=== PATIENT | male | born 1975 | race African-American/Black ===

== ENCOUNTER 2019-07-07 15:07 | Inpatient (IN) | payer OTHER ==
[2019-07-07 15:30] VITALS: BMI 28.8
--- NOTE | 2019-07-07 15:48 | HP ---
COWS - Scale Resting Pulse: 0= [place] 80 or Below Sweatin= Chills/Flushing Restless Observation: 1= Difficult to Sit Still Pupil Size: 1= Pupils >than Normal Bone or Joint Aches: 2= Severe Diffuse Aches Runny Nose/ Eye Tearin= Runny Nose/Eyes GI Upset > 30mins: 2= Nausea/Diarrhea Tremor Observation: 2= Slight Tremor Visible Yawning Observation: 1= 1-2x During Session Anxiety or Irritability: 2=Irritable/Anxious Goose Flesh Skin: 0=Smooth Skin COWS Score: 14 CIWA Score Nausea/Vomitin Muscle Tremors: 2 Anxiety: 3 Agitation: 3 Paroxysmal Sweats: 1-Minimal Palms Moist Orientation: 0-Oriented Tacttile Disturbances: 1-Very Mild Itch/Numbness Auditory Disturbances: 0-None Visual Disturbances: 0-None Headache: 2-Mild CIWA-Ar Total Score: 14 - Admission Criteria OASAS Guidelines: Admission for Medically Managed Detox: Requires at least one of the followin. CIWA greater than 12 2. Seizures within the past 24 hours 3. Delirium tremens within the past 24 hours 4. Hallucinations within the past 24 hours 5. Acute intervention needed for co occurring medical disorder 6. Acute intervention needed for co occurring psychiatric disorder 7. Severe withdrawal that cannot be handled at a lower level of care (continued vomiting, continued diarrhea, abnormal vital signs) requiring intravenous medication and/or fluids 8. Admitting History and Physical - Admission Chief Complaint: i need help to stop using heroin and alcohol History Source: Patient Limitations to Obtaining History: No Limitations - Smoking History Smoking history: Current every day smoker Have you smoked in the past 12 months: Yes Aproximately how many cigarettes per day: 10 - Alcohol/Substance Use Hx Alcohol Use: No (beer 1 six pk/d, vodka 1pt./d) - Social History Usual Living Arrangement: Yes: Other (live with brother) Occupation: unemployed Admission ROS S - HPI Chief Complaint: i need help to stop using heroin and alcohol Allergies/Adverse Reactions: Allergies Allergy/AdvReac Type Severity Reaction Status Date / Time No Known Allergies Allergy Verified 07/07/19 15:17 History of Present Illness: this 44 years old male with heroin and alcohol dependence seeking detox, withdrawal symptom,last detox 10/03 in [facility] multiple admissions in detox but keep relapsing weight loss nicotine dependence longest sobriety 1 year may go to rehab after detox hepatitis c treated may go to rehab after detox Exam Limitations: No Limitations - Ebola screening Have you traveled outside of the country in the last 21 days: No (N) Have you had contact with anyone from an Ebola affected area: No Do you have a fever: No - Review of Systems Constitutional: Chills, Loss of Appetite, Malaise, Night Sweats, Changes in sleep, Unintentional Wgt. Loss EENT: reports: Tearing, Nose Congestion Respiratory: reports: No Symptoms reported Cardiac: reports: No Symptoms Reported GI: reports: Diarrhea, Nausea, Poor Appetite Musculoskeletal: reports: Back Pain, Joint Pain, Muscle Pain Integumentary: reports: Dryness Neuro: reports: Headache, Tremors Endocrine: reports: No Symptoms Reported Hematology: reports: No Symptoms Reported Psychiatric: reports: No Sypmtoms Reported, Judgement Intact, Mood/Affect Appropiate, Orientated x3 Other Systems: Reviewed and Negative Patient History - Patient Medical History Hx Anemia: No Hx Asthma: No Hx Chronic Obstructive Pulmonary Disease (COPD): No Hx Cancer: No Hx Cardiac Disorders: No Hx Congestive Heart Failure: No Hx Hypertension: No Hx Hypercholesterolemia: No Hx Pacemaker: No HX Cerebrovascular Accident: No Hx Seizures: No Hx Dementia: No Hx Diabetes: No Hx Gastrointestinal Disorders: No Hx Liver Disease: No Hx Genitourinary Disorders: No Hx Sexually Transmitted Disorders: Yes (Tx in the past for gonorrhea) Hx Renal Disease (ESRD): No Hx Thyroid Disease: No Hx Human Immunodeficiency Virus (HIV): No (negative last 06/02 ) Hx Hepatitis C: Yes (treated) Hx Depression: No Hx Suicide Attempt: No Hx Bipolar Disorder: No Hx Schizophrenia: No Other Medical History: no suicidal,no homicidal - Patient Surgical History Past Surgical History: Yes Hx Neurologic Surgery: No Hx Cataract Extraction: No Hx Cardiac Surgery: No Hx Lung Surgery: No Hx Breast Surgery: No Hx Breast Biopsy: No Hx Abdominal Surgery: No Hx Appendectomy: No Hx Cholecystectomy: No Hx Genitourinary Surgery: No Hx Section: No Hx Orthopedic Surgery: Yes (Right mandible fx in 1995) Hx Hysterectomy: No Other Surgical History: Right orbital fx 1997 Anesthesia Reaction: No - PPD History Previous Implant?: Yes Documented Results: Negative w/o proof Date: 02/01/13 Results: 0mm PPD to be Administered?: Yes - Smoking Cessation Smoking history: Current every day smoker Have you smoked in the past 12 months: Yes Aproximately how many cigarettes per day: 10 Cigars Per Day: 0 Hx Chewing Tobacco Use: No Initiated information on smoking cessation: Yes 'Breaking Loose' booklet given: 07/07/19 - Substances abused Alcohol Substance route: Oral Frequency: Daily Amount used: 1 PINT OF CYRUS, 6 CANS OF BEER Age of first use: 15 Date of last use: 07/06/19 Heroin Substance route: Inhalation Frequency: Daily Amount used: 15 BAGS Age of first use: 19 Date of last use: 07/06/19 Admission Physical Exam [facility] - Vital Signs Vital Signs: Vital Signs - 24 hr 07/07/19 15:14 Temperature 97.7 F Pulse Rate 65 Respiratory 17 Rate Blood Pressure 121/71 - Physical General Appearance: Yes: Moderate Distress, Tremorous, Irritable, Sweating, Anxious HEENTM: Yes: Normal ENT Inspection, RIGOBERTO, Pharynx Normal Respiratory: Yes: Within Normal Limits, Lungs Clear, Normal Breath Sounds Neck: Yes: Within Normal Limits Breast: Yes: Within Normal Limits Cardiology: Yes: Within Normal Limits, Regular Rhythm, Regular Rate, S1, S2 Abdominal: Yes: Within Normal Limits, Normal Bowel Sounds, Non Tender, Flat, Soft Genitourinary: Yes: Within Normal Limits Back: Yes: Muscle Spasm Musculoskeletal: Yes: Back pain, Joint Stiffness, Muscle Pain Extremities: Yes: Within Normal Limits, Normal Range of Motion, Tremors Neurological: Yes: elevator serviceman II-XII NML intact, Fully Oriented, Alert, Motor Strength 5/5 Integumentary: Yes: Dry Lymphatic: Yes: Within Normal Limits - Diagnostic (1) Opioid dependence with withdrawal Current Visit: Yes Status: Acute (2) Alcohol dependence with uncomplicated withdrawal Current Visit: Yes Status: Acute (3) Cocaine abuse Current Visit: Yes Status: Acute (4) Dehydration Current Visit: Yes Status: Acute (5) Nicotine dependence Current Visit: Yes Status: Acute Cleared for Admission [facility] - Detox or Rehab [facility] Level of Care: Medically Managed Detox Regimen/Protocol: Methadone/Valium Breathalyzer - Breathalyzer Breathalyzer: 0 Urine Drug Screen - Test Device Lot number: [id number] Expiration date: 03/14/21 - Control Is test valid?: Yes - Results Drug screen NEGATIVE: No Urine drug screen results: KAVIN-Cocaine, FEN-Fentanyl, MOP-Opiates, BZO- Benzodiazepines Inpatient Rehab Admission - Rehab Decision to Admit Inpatient rehab admission?: No
[2019-07-07] MEDS ORDERED: ACETAMINOPHEN 325 MG TABLET (FP) PO PRN ×2 (15:55)
[2019-07-07] MEDS ORDERED: MENTHOL/PHENOL 1 EACH UD MM PRN (15:55)
[2019-07-07] MEDS ORDERED: diazePAM 5 MG TABLET PO PRN (15:55)
[2019-07-07] MEDS ORDERED: MELATONIN 5 MG TABLETS PO PRN (15:55)
[2019-07-07] MEDS ORDERED: IBUPROFEN 400 MG TABLET (FP) PO PRN (15:55)
[2019-07-07] MEDS ORDERED: hydrOXYzine PAMOATE 25 MG CAPSULE (FP) PO PRN (15:55)
[2019-07-07] MEDS ORDERED: METHOCARBAMOL 500 MG TABLET PO PRN (15:55)
[2019-07-07] MEDS ORDERED: MAGNESIUM HYDROX 2400MG/30ML ORAL SUSPENSION 30 ML CUP PO PRN (15:55)
[2019-07-07] MEDS ORDERED: BISMUTH SUBSALICYLATE 524 MG/30 ML UD PO PRN (15:55)
[2019-07-07] MEDS ORDERED: MAG HYDROX/AL HYDROX/SIMETH 30 ML UNIT-DOSE CUP PO PRN (15:55)
[2019-07-07] MEDS ORDERED: MAGNESIUM CITRATE 300 ML BOTTLE PO PRN (15:55)
[2019-07-07] MEDS ORDERED: NICOTINE POLACRILEX 2 MG GUM BUC PRN (15:55)
[2019-07-07] MEDS ORDERED: cloNIDine HCL 0.1 MG TABLET PO PRN (15:55)
[2019-07-07] MEDS ORDERED: METHADONE HCL 10 MG TABLET (FOR DETOX USE ONLY) PO ONE (16:15)
[2019-07-07] MEDS: diazePAM 5 MG TABLET PO SCH (22:40)
[2019-07-07] MEDS: THIAMINE HCL 100 MG TABLET (FP) PO SCH (22:40)
[2019-07-08] MEDS: diazePAM 5 MG TABLET PO SCH ×3 (06:52→22:02)
[2019-07-08] MEDS ORDERED: METHADONE HCL 5 MG TABLET (FOR DETOX USE ONLY) ONE ×2 (09:02→11:46)
[2019-07-08] MEDS ORDERED: METHADONE HCL 10 MG TABLET (FOR DETOX USE ONLY) ONE ×2 (09:03→11:47)
[2019-07-08] MEDS ORDERED: METHADONE (DETOX) 20 MG, METHADONE (DETOX) 5 MG PO ONE (10:00)
[2019-07-08] MEDS: NICOTINE 21 MG/24 HOURS TOPICAL PATCH TD SCH (10:36)
[2019-07-08] MEDS: PRENATAL VITAMINS W/ FOLIC ACID TABLET (FP) PO SCH (10:36)
[2019-07-08] MEDS: METHADONE (DETOX) 20 MG, METHADONE (DETOX) 5 MG PO ONE ×2 (11:50→11:52)
[2019-07-08 12:13] LABS: MCH 29.3 pg (25.7-33.7); MCHC 33.2 g/dl (32.0-35.9); MEAN CELL VOLUME 88.2 fl (80-96); PLATELET COUNT 206 K/MM3 (134-434); RBC 4.09 M/mm3 (4.00-5.60); RDW 13.5 % (11.9-15.9); WHITE BLOOD COUNT 4.7 K/mm3 (4.0-10.0)
[2019-07-08 12:26] LABS: ALBUMIN 3.1 g/dl (3.4-5.0); BILIRUBIN,TOTAL 0.3 mg/dL (0.2-1); BLOOD UREA NITROGEN 12.9 mg/dL (7-18); CALCIUM 8.4 mg/dL (8.5-10.1); CREATININE 0.8 mg/dL (0.55-1.3); POTASSIUM 4.2 mmol/L (3.5-5.1); TOT PROT 5.9 g/dl (6.4-8.2)
--- NOTE | 2019-07-08 12:32 | PN ---
[facility] CIWA - CIWA Score Nausea/Vomitin-Mild Nausea/No Vomiting Muscle Tremors: 3 Anxiety: 4-Mod. Anxious/Guarded Agitation: 3 Paroxysmal Sweats: 3 Orientation: 0-Oriented Tacttile Disturbances: 0-None Auditory Disturbances: 0-None Visual Disturbances: 0-None Headache: 0-None Present CIWA-Ar Total Score: 14 BHS COWS - Scale Resting Pulse: 1= [place] 81-100 Sweatin= Chills/Flushing Restless Observation: 3= Extraneous Movement Pupil Size: 0= Normal to Room Light Bone or Joint Aches: 1= Mild Discomfort Runny Nose/ Eye Tearin= Runny Nose/Eyes GI Upset > 30mins: 2= Nausea/Diarrhea Tremor Observation of Outstretched Hands: 2= Slight Tremor Visible Yawning Observation: 0= None Anxiety or Irritability: 2=Irritable/Anxious Goose Flesh Skin: 0=Smooth Skin COWS Score: 14 S Progress Note (SOAP) Subjective: Sweating, chills, tremor, interrupted sleep. Patient overslept and missed his methadone 25mg this morning (one time dose ordered so patient can receive his methadone 25mg) for today. Objective: 07/08/19 12:30 Last Vital Signs Temp Pulse Resp BP Pulse Ox 97.5 F L 81 18 131/80 07/08/19 09:23 07/08/19 09:23 07/08/19 09:23 07/08/19 09:23 Elevated b/p noted: 131/80 (patient denies HTN) Laboratory Tests 07/08/19 07/08/19 07/08/19 07:35 07:35 07:35 WBC 4.7 RBC 4.09 Hgb 12.0 Hct 36.0 MCV 88.2 MCH 29.3 MCHC 33.2 RDW 13.5 Plt Count 206 MPV 8.0 Sodium 140 Potassium 4.2 Chloride 108 H Carbon Dioxide 30 Anion Gap 2 L BUN 12.9 Creatinine 0.8 Est GFR (CKD-EPI)AfAm 125.92 Est GFR (CKD-EPI)NonAf 108.65 Random Glucose 87 Calcium 8.4 L Total Bilirubin 0.3 AST 14 L ALT 15 Alkaline Phosphatase 46 Total Protein 5.9 L Albumin 3.1 L RPR Titer Nonreactive Labs reviewed: albumin 3.1, total protein 5.9 (both low) Assessment: 07/08/19 12:32 Withdrawal sxs Noted with elevated b/p and hypoalbuminemia Plan: Continue detox Encouraged PO water intake Elevated b/p: most likely due to withdrawal, on clonidine prn, monitor b/p Hypoalbuminemia: encouraged diet/increased protein intake
[2019-07-08] MEDS: THIAMINE HCL 100 MG TABLET (FP) PO SCH (22:02)
[2019-07-09] MEDS: diazePAM 5 MG TABLET PO SCH ×2 (07:03→17:40)
--- NOTE | 2019-07-09 09:32 | PN ---
S CIWA - CIWA Score Nausea/Vomitin Muscle Tremors: 2 Anxiety: 2 Agitation: 2 Paroxysmal Sweats: No Perspiration Orientation: 0-Oriented Tacttile Disturbances: 1-Very Mild Itch/Numbness Auditory Disturbances: 0-None Visual Disturbances: 0-None Headache: 2-Mild CIWA-Ar Total Score: 11 S COWS - Scale Resting Pulse: 1= [place] 81-100 Sweatin= No chills or Flushing Restless Observation: 1= Difficult to Sit Still Pupil Size: 1= Pupils >than Normal Bone or Joint Aches: 1= Mild Discomfort Runny Nose/ Eye Tearin= Nasal Congestion GI Upset > 30mins: 1= Stomach Cramp Tremor Observation of Outstretched Hands: 2= Slight Tremor Visible Yawning Observation: 1= 1-2x During Session Anxiety or Irritability: 2=Irritable/Anxious Goose Flesh Skin: 0=Smooth Skin COWS Score: 11 S Progress Note (SOAP) Subjective: alert,irritable,anxious,tremor,pain in the body and back Objective: 07/09/19 09:30 Vital Signs Temperature 97 F L 07/09/19 09:04 Pulse Rate 96 H 07/09/19 09:04 Respiratory Rate 18 07/09/19 09:04 Blood Pressure 131/96 07/09/19 09:04 O2 Sat by Pulse Oximetry (%) Laboratory Last Values WBC 4.7 K/mm3 (4.0-10.0) 07/08/19 07:35 RBC 4.09 M/mm3 (4.00-5.60) 07/08/19 07:35 Hgb 12.0 GM/dL (11.7-16.9) 07/08/19 07:35 Hct 36.0 % (35.4-49) 07/08/19 07:35 MCV 88.2 fl (80-96) 07/08/19 07:35 MCH 29.3 pg (25.7-33.7) 07/08/19 07:35 MCHC 33.2 g/dl (32.0-35.9) 07/08/19 07:35 RDW 13.5 % (11.9-15.9) 07/08/19 07:35 Plt Count 206 K/MM3 (134-434) 07/08/19 07:35 MPV 8.0 fl (7.5-11.1) 07/08/19 07:35 Sodium 140 mmol/L (136-145) 07/08/19 07:35 Potassium 4.2 mmol/L (3.5-5.1) 07/08/19 07:35 Chloride 108 mmol/L (98-107) H 07/08/19 07:35 Carbon Dioxide 30 mmol/L (21-32) 07/08/19 07:35 Anion Gap 2 MMOL/L (8-16) L 07/08/19 07:35 BUN 12.9 mg/dL (7-18) 07/08/19 07:35 Creatinine 0.8 mg/dL (0.55-1.3) 07/08/19 07:35 Est GFR (CKD-EPI)AfAm 125.92 07/08/19 07:35 Est GFR (CKD-EPI)NonAf 108.65 07/08/19 07:35 Random Glucose 87 mg/dL (74-106) 07/08/19 07:35 Calcium 8.4 mg/dL (8.5-10.1) L 07/08/19 07:35 Total Bilirubin 0.3 mg/dL (0.2-1) 07/08/19 07:35 AST 14 U/L (15-37) L 07/08/19 07:35 ALT 15 U/L (13-61) 07/08/19 07:35 Alkaline Phosphatase 46 U/L (45-117) 07/08/19 07:35 Total Protein 5.9 g/dl (6.4-8.2) L 07/08/19 07:35 Albumin 3.1 g/dl (3.4-5.0) L 07/08/19 07:35 RPR Titer Nonreactive (NONREACTIVE) 07/08/19 07:35 Assessment: 07/09/19 09:31 withdrawal symptom Plan: continue detox methadone and va;ium regimen
[2019-07-09] MEDS ORDERED: METHADONE HCL 10 MG TABLET (FOR DETOX USE ONLY) PO ONE (10:00)
[2019-07-09] MEDS: NICOTINE 21 MG/24 HOURS TOPICAL PATCH TD SCH (10:17)
[2019-07-09] MEDS: PRENATAL VITAMINS W/ FOLIC ACID TABLET (FP) PO SCH (10:17)
[2019-07-09] MEDS: THIAMINE HCL 100 MG TABLET (FP) PO SCH (22:57)
[2019-07-10] MEDS ORDERED: diazePAM 5 MG TABLET PO ONE (06:00)
[2019-07-10] MEDS ORDERED: METHADONE HCL 10 MG TABLET (FOR DETOX USE ONLY) ONE (09:03)
[2019-07-10] MEDS ORDERED: METHADONE HCL 5 MG TABLET (FOR DETOX USE ONLY) ONE (09:03)
--- NOTE | 2019-07-10 09:11 | PN ---
[facility] CIWA - CIWA Score Nausea/Vomitin-Mild Nausea/No Vomiting Muscle Tremors: 1-None Visible, but [place] Anxiety: 2 Agitation: 2 Paroxysmal Sweats: No Perspiration Orientation: 0-Oriented Tacttile Disturbances: 1-Very Mild Itch/Numbness Auditory Disturbances: 0-None Visual Disturbances: 0-None Headache: 1-Very Mild CIWA-Ar Total Score: 8 BHS COWS - Scale Resting Pulse: 0= [place] 80 or Below Sweatin= No chills or Flushing Restless Observation: 1= Difficult to Sit Still Pupil Size: 1= Pupils >than Normal Bone or Joint Aches: 1= Mild Discomfort Runny Nose/ Eye Tearin= Nasal Congestion GI Upset > 30mins: 1= Stomach Cramp Tremor Observation of Outstretched Hands: 1= Tremor [place], Not Seen Yawning Observation: 1= 1-2x During Session Anxiety or Irritability: 2=Irritable/Anxious Goose Flesh Skin: 0=Smooth Skin COWS Score: 9 [facility] Progress Note (SOAP) Subjective: alert,irritable,anxious,interrupted sleep,pain in the body Objective: 07/10/19 09:11 Vital Signs Temperature 98.1 F 07/10/19 09:09 Pulse Rate 77 07/10/19 09:09 Respiratory Rate 18 07/10/19 09:09 Blood Pressure 132/72 07/10/19 09:09 O2 Sat by Pulse Oximetry (%) Assessment: 07/10/19 09:11 withdrawal symptom Plan: continue detox methadone and valium regimen
[2019-07-10] MEDS: PRENATAL VITAMINS W/ FOLIC ACID TABLET (FP) PO SCH (09:47)
[2019-07-10] MEDS: NICOTINE 21 MG/24 HOURS TOPICAL PATCH TD SCH (09:48)
[2019-07-10] MEDS ORDERED: METHADONE (DETOX) 10 MG, METHADONE (DETOX) 5 MG PO ONE (10:00)
[2019-07-10] MEDS: THIAMINE HCL 100 MG TABLET (FP) PO SCH (22:05)
--- NOTE | 2019-07-11 09:38 | PN ---
[facility] CIWA - CIWA Score Nausea/Vomitin-No Nausea/No Vomiting Muscle Tremors: 1-None Visible, but [place] Anxiety: 1-Mildly Anxious Agitation: 1-Slight > Activity Paroxysmal Sweats: No Perspiration Orientation: 0-Oriented Tacttile Disturbances: 0-None Auditory Disturbances: 0-None Visual Disturbances: 0-None Headache: 1-Very Mild CIWA-Ar Total Score: 4 S COWS - Scale Resting Pulse: 0= [place] 80 or Below Sweatin= No chills or Flushing Restless Observation: 1= Difficult to Sit Still Pupil Size: 0= Normal to Room Light Bone or Joint Aches: 1= Mild Discomfort Runny Nose/ Eye Tearin= None GI Upset > 30mins: 1= Stomach Cramp Tremor Observation of Outstretched Hands: 1= Tremor [place], Not Seen Yawning Observation: 0= None Anxiety or Irritability: 1=Feels Anxious/Irritable Goose Flesh Skin: 0=Smooth Skin COWS Score: 5 [facility] Progress Note (SOAP) Subjective: alert,irritable,anxious,interrupted sleep Objective: 07/11/19 09:37 Vital Signs Temperature 98.6 F 07/11/19 09:25 Pulse Rate 70 07/11/19 09:25 Respiratory Rate 18 07/11/19 09:25 Blood Pressure 125/73 07/11/19 09:25 O2 Sat by Pulse Oximetry (%) Assessment: 07/11/19 09:37 withdrawal symptom Plan: continue detox methadone and valium regimen
--- NOTE | 2019-07-11 09:46 | DS ---
[facility] Detox Discharge Summary Admission Date: 07/07/19 Discharge Date: 07/11/19 - History Present History: Alcohol Dependence, Cocaine Dependence, Opioid Dependence - Physical Exam Results Vital Signs: Vital Signs Temperature 98.6 F 07/11/19 09:25 Pulse Rate 70 07/11/19 09:25 Respiratory Rate 18 07/11/19 09:25 Blood Pressure 125/73 07/11/19 09:25 O2 Sat by Pulse Oximetry (%) Pertinent Admission Physical Exam Findings: pt arrived in withdrawals Vital Signs Temperature 98.6 F 07/11/19 09:25 Pulse Rate 70 07/11/19 09:25 Respiratory Rate 18 07/11/19 09:25 Blood Pressure 125/73 07/11/19 09:25 O2 Sat by Pulse Oximetry (%) Laboratory Tests 07/08/19 07/08/19 07/08/19 07:35 07:35 07:35 WBC 4.7 RBC 4.09 Hgb 12.0 Hct 36.0 MCV 88.2 MCH 29.3 MCHC 33.2 RDW 13.5 Plt Count 206 MPV 8.0 Sodium 140 Potassium 4.2 Chloride 108 H Carbon Dioxide 30 Anion Gap 2 L BUN 12.9 Creatinine 0.8 Est GFR (CKD-EPI)AfAm 125.92 Est GFR (CKD-EPI)NonAf 108.65 Random Glucose 87 Calcium 8.4 L Total Bilirubin 0.3 AST 14 L ALT 15 Alkaline Phosphatase 46 Total Protein 5.9 L Albumin 3.1 L RPR Titer Nonreactive pt is aaox3 ambulating no acute distress no s/s of withdrawals - Treatment Hospital Course: Detox Protocol Followed, Detoxed Safely, Responded well, Discharged Condition Good, Rehab Referral Accepted Patient has Accepted a Rehab Referral to: [facility] - Medication Discharge Medications: Ambulatory Orders NK [No Known Home Medication] 07/07/19 - Diagnosis (1) Alcohol dependence with uncomplicated withdrawal Current Visit: Yes Status: Chronic (2) Cocaine abuse Current Visit: Yes Status: Chronic (3) Nicotine dependence Current Visit: Yes Status: Chronic Qualifiers: Nicotine product type: cigarettes Substance use status: uncomplicated Qualified Code(s): F17.210 - Nicotine dependence, cigarettes, uncomplicated (4) Opioid dependence with withdrawal Current Visit: Yes Status: Chronic (5) Opioid dependence Current Visit: No Status: Active (6) Substance Induced Sleep Disorder Current Visit: No Status: Active (7) hep.c Current Visit: No Status: Active - AMA Did Patient Leave Against Medical Advice: No
[2019-07-11] MEDS ORDERED: METHADONE HCL 10 MG TABLET (FOR DETOX USE ONLY) PO ONE (10:00)
[2019-07-11] MEDS: PRENATAL VITAMINS W/ FOLIC ACID TABLET (FP) PO SCH (10:23)
[2019-07-11] MEDS: NICOTINE 21 MG/24 HOURS TOPICAL PATCH TD SCH (10:24)
[2019-07-11 17:24] VITALS: BP 108/67; PULSE 75; TEMP 98.4
[2019-07-12] MEDS ORDERED: METHADONE HCL 5 MG TABLET (FOR DETOX USE ONLY) PO ONE (06:00)
== END 2019-07-11 17:46 | disposition other institution (70) | DRG 773 ==
LOC: YASAS 15:07 → Y6N 16:02
PROVIDERS: ADMIT Allergy & Immunology; ATTEND Allergy & Immunology
PROC: HZ2ZZZZ Detoxification Services for Substance Abuse Treatment (ICD-10-PCS; principal; 2019-07-07)
DX: F10.230 Alcohol dependence with withdrawal, uncomplicated (principal); F11.23 Opioid dependence with withdrawal; F14.20 Cocaine dependence, uncomplicated; F17.210 Nicotine dependence, cigarettes, uncomplicated; F19.282 Other psychoactive substance dependence with psychoactive substance-induced sleep disorder; E88.09 Other disorders of plasma-protein metabolism, not elsewhere classified; E86.0 Dehydration; B18.2 Chronic viral hepatitis C; R03.0 Elevated blood-pressure reading, without diagnosis of hypertension; Z86.19 Personal history of other infectious and parasitic diseases; Z59.0 Homelessness
CPT/HCPCS: 36415; 80053; 85027; 86593

== ENCOUNTER 2019-07-11 17:57 | Inpatient (IN) | payer OTHER ==
[2019-07-11] MEDS ORDERED: P-EPHED 60MG/TRIPROLIDI 2.5MG TABLET PO PRN (18:39)
[2019-07-11] MEDS ORDERED: MENTHOL/PHENOL 1 EACH UD MM PRN (18:39)
[2019-07-11] MEDS ORDERED: LOPERAMIDE HCL 2 MG CAPSULE PO PRN (18:39)
[2019-07-11] MEDS ORDERED: IBUPROFEN 400 MG TABLET (FP) PO PRN (18:39)
[2019-07-11] MEDS ORDERED: guaiFENesin 200 MG/10 ML 10 ML UNIT-DOSE CUPS PO PRN (18:39)
[2019-07-11] MEDS ORDERED: ACETAMINOPHEN 325 MG TABLET (FP) PO PRN (18:39)
[2019-07-11] MEDS ORDERED: MAG HYDROX/AL HYDROX/SIMETH 30 ML UNIT-DOSE CUP PO PRN (18:39)
[2019-07-11] MEDS ORDERED: MAGNESIUM CITRATE 300 ML BOTTLE PO PRN (18:39)
[2019-07-11] MEDS ORDERED: MAGNESIUM HYDROX 2400MG/30ML ORAL SUSPENSION 30 ML CUP PO PRN (18:39)
[2019-07-11] MEDS: THIAMINE HCL 100 MG TABLET (FP) PO SCH (21:31)
[2019-07-11] MEDS ORDERED: MELATONIN 5 MG TABLETS PO PRN (22:00)
[2019-07-12] MEDS: PRENATAL VITAMINS W/ FOLIC ACID TABLET (FP) PO SCH (10:09)
[2019-07-12] MEDS: THIAMINE HCL 100 MG TABLET (FP) PO SCH (21:59)
[2019-07-13] MEDS: PRENATAL VITAMINS W/ FOLIC ACID TABLET (FP) PO SCH (10:31)
[2019-07-13] MEDS ORDERED: MELATONIN 5 MG TABLETS PO PRN (11:25)
--- NOTE | 2019-07-13 11:55 | CONSULT ---
[facility] Psychiatric Consult - Data Date of interview: 07/13/19 Admission source: Identifying data: Mr Alonso is a 44 years old single Black male, father of 2 children, unemployed with no source of income, homeless admitted from detox on 07/11/19 for inpatient rehabilitation for alcohol and opioid Substance Abuse History: Reports history of alcohol and heroin use. Refer to addiction counselor's summary for further information Medical History: Significant for history of treatment for hepatitis C, gonorrhea and surgeries(fracture of right mandible in 1995, orbital fracture in 1997). Smokes 10 cigarettes daily Psychiatric History: Denies history of previous psychiatric treatment. However, reports sleeping poorly despite taking Belsomra Physical/Sexual Abuse/Trauma History: Denies history of abuse as a child or DV relationship as an adult Mental Status Exam - Mental Status Exam Alert and Oriented to: Time, Place, Person Cognitive Function: Fair Patient Appearance: Well Groomed Mood: Irritable Affect: Appropriate Patient Behavior: Cooperative Speech Pattern: Clear Voice Loudness: Normal Thought Process: Intact, Goal Oriented Thought Disorder: Not Present Hallucinations: Denies Suicidal Ideation: Denies Homicidal Ideation: Denies Insight/Judgement: Fair Sleep: Poorly Appetite: Fair Muscle strength/Tone: Normal Gait/Station: Normal Psychiatric Findings - Problem List ([place] 1, 2,3) (1) Substance induced mood disorder Current Visit: Yes Status: Acute (2) Substance-induced sleep disorder Current Visit: Yes Status: Acute (3) Alcohol dependence Current Visit: Yes Status: Acute (4) Opioid dependence Current Visit: No Status: Active (5) Nicotine dependence Current Visit: No Status: Chronic Qualifiers: Nicotine product type: cigarettes Substance use status: uncomplicated Qualified Code(s): F17.210 - Nicotine dependence, cigarettes, uncomplicated (6) hep.c Current Visit: No Status: Resolved - Initial Treatment Plan Initial Treatment Plan: 1) Start Belsomra 10 mg po HS prn for insomnia. 2) Continue inpatient detoxification
[2019-07-13] MEDS: THIAMINE HCL 100 MG TABLET (FP) PO SCH (22:17)
[2019-07-14] MEDS: PRENATAL VITAMINS W/ FOLIC ACID TABLET (FP) PO SCH (09:14)
[2019-07-14] MEDS: THIAMINE HCL 100 MG TABLET (FP) PO SCH (21:20)
[2019-07-15] MEDS: PRENATAL VITAMINS W/ FOLIC ACID TABLET (FP) PO SCH (10:28)
[2019-07-15] MEDS: THIAMINE HCL 100 MG TABLET (FP) PO SCH (21:20)
[2019-07-16 07:08] VITALS: BP 145/97; PULSE 110; TEMP 97.9
--- NOTE | 2019-07-16 11:39 | DS ---
[facility] Rehab Discharge Summary - [facility] Rehab Discharge Summary Admission Date: 07/11/19 Discharge Date: 07/16/19 - History Present History: Alcohol dependence, Opioid dependence Pertinent Past History: this 44 years old male with heroin and alcohol dependence 10/03 in [facility] multiple admissions in detox but keep relapsing weight loss nicotine dependence longest sobriety 1 year may go to rehab after detox hepatitis c treated may go to rehab after detox Exam Limitations: No Limitations - Discharge Physical Exam Vital Signs: Vital Signs Temperature 97.9 F 07/16/19 07:07 Pulse Rate 110 H 07/16/19 07:07 Respiratory Rate 18 07/16/19 07:07 Blood Pressure 145/97 07/16/19 07:07 O2 Sat by Pulse Oximetry (%) Ambulatory Orders NK [No Known Home Medication] 07/07/19 ROS: DENIES OPIOD/KAVIN CRAVINGS, SWEATING, SHAKES, SOB AND CHEST PAIN PE: ALERT AND ORIENTED X 3 SKIN WARM AND DRY CAR S1S2, RRR RESP CTA BL, NO WHEEZING, RALES EXT FULL ROM, NO TREMORS AMB AD DILIA - Treatment Discharge Condition: Discharge condition good Hospital Course: PATIENT COMPLETED REHAB TODAY AND REPORTS MOTIVATION TO STAY SOBER. ABLE TO IDENTIFY TRIGGERS AND POSITIVE COPING MEASURES. TO FOLLOW UP WITH [facility], [facility] AND [facility] FOR AFTERCARE AND ENCOURAGED TO CONTINUE WITH GROUP MEETINGS TO PREVENT RELAPSE. PATIENT ATTENDED 1:1 COUNSELING SESSIONS, GROUP MEETINGS AND EVALUATION AND TX BY PSYCH DURING ADMISSION. MEDICALLY STABLE FOR D/C AND DENIES SI/HI. - Medication Discharge Medications: Ambulatory Orders NK [No Known Home Medication] 07/07/19 - Medication-Assisted Treatment (MAT) Medication-Assisted Treatment (MAT): No - Discharge Instructions Diet, activity, other medical instructions: Diet: REG JUSTO Activity: JUSTO Other medical instructions: F/U WITH PCP RECOMMENDED - Follow-up Referral Minutes to complete discharge: 30 - AMA Did Patient Leave Against Medical Advice: No
== END 2019-07-16 09:20 | disposition home or self-care (01) | DRG 772 ==
LOC: YASAS 17:57 → Y3W 17:59
PROVIDERS: ADMIT Neuromusculoskeletal Medicine & OMM; ATTEND Neuromusculoskeletal Medicine & OMM
PROC: HZ42ZZZ Group Counseling for Substance Abuse Treatment, Cognitive-Behavioral (ICD-10-PCS; principal; 2019-07-11)
DX: F11.20 Opioid dependence, uncomplicated (principal); F10.20 Alcohol dependence, uncomplicated; F17.210 Nicotine dependence, cigarettes, uncomplicated; F19.282 Other psychoactive substance dependence with psychoactive substance-induced sleep disorder; F19.24 Other psychoactive substance dependence with psychoactive substance-induced mood disorder; R63.4 Abnormal weight loss; Z68.28 Body mass index [BMI] 28.0-28.9, adult; Z86.19 Personal history of other infectious and parasitic diseases; Z59.0 Homelessness